=== PATIENT | female | born 1995 | race Caucasian/White ===

== ENCOUNTER 2021-08-27 20:37 | Inpatient (IN) | payer OTHER ==
[~2021-08-27] VITALS: Ht 160 cm; Wt 69.9 kg
[2021-08-27] MEDS ORDERED: NACL 0.9% 2,000 ML IV ONE (21:00)
--- NOTE | 2021-08-27 21:00 | NUR ---
ER at bedside examining patient.
[2021-08-27 21:05] VITALS: BP_SYST 156
--- NOTE | 2021-08-27 21:11 | NUR ---
PT BIB FRIENDS FOR VOMITING STARTING YESTERDAY. PT HAS A HX OF DM AND LAS T GLUCOSE STICK READ HIGH. PT HAS BEEN FEELING "WEIRD" SINCE YESTERDAY BUT SINCE 1999 PT HAS BEEN SOB AND VOMITING. PTS FAMILY STATED SHE HAS HAD A SYNCOPAL EPISODE TODAY. SHE HAS HAD NO INSULIN TODAY.A&OX4. FAMILY AT BEDSIDE
[2021-08-27 21:15] LABS: BASOPHILS # (AUTO) 0.2 K/uL (0.0-0.2); BASOPHILS % (AUTO) 0.5 % (0.0-2.0); EOSINOPHILS # (AUTO) 0.1 K/uL (0.0-0.4); EOSINOPHILS % (AUTO) 0.3 % (0.0-4.0); HEMATOCRIT 45.9 % (36-48); HEMOGLOBIN 13.9 g/dL (12.0-16.0); LYMPHOCYTES # (AUTO) 3.4 K/uL (1.0-5.5); LYMPHOCYTES % (AUTO) 11.6 % (20.5-51.5); MEAN CORPUSCULAR HEMOGLOBIN 27 pg (27-31); MEAN CORPUSCULAR HGB CONC 30 % (32-36); MEAN CORPUSCULAR VOLUME 90 fL (79.0-98.0); MONOCYTES # (AUTO) 0.8 K/uL (0.0-1.0); MONOCYTES % (AUTO) 2.5 % (1.7-9.3); NEUTROPHILS % (AUTO) 85.1 % (40.0-70.0); PLATELET COUNT (AUTO) 514 K/uL (130-430); RED BLOOD CELL COUNT(AUTO) 5.12 MIL/uL (4.2-6.2); RED CELL DISTRIBUTION WIDTH 14.3 % (9.0-15.0); WHITE BLOOD COUNT (AUTO) 29.4 K/uL (4.8-10.8)
[2021-08-27] MEDS ORDERED: DEXTROSE 50% JECT 50 ML DISP.SYRIN IVP PRN ×2 (21:15→23:45)
[2021-08-27] MEDS ORDERED: INSULIN REGULAR, HUMAN 100 UNITS in NS 99 ML IV PRN ×2 (21:15)
--- NOTE | 2021-08-27 21:34 | NUR ---
Note marissaone in EDM - 08/28/21 at 0427 by IFEANYI # 16 FR Andrew catheter with use of sterile technique. Immediate return of 50 cc YELLOW urine noted. Bedside drainage bag placed below level of bladder. Urine sample collected and sent to lab. Pt tolerated procedure WELL. Patient arrived with andrew in place, changed due to standard of practice prior to admission. Patient unable to toilet self.
[2021-08-27 22:10] LABS: ANION GAP 38 (5-15); CALCIUM 9.6 mg/dL (8.4-11.0); CHLORIDE 97 mmol/L (98-107); CREATININE 1.72 mg/dL (0.55-1.30); POTASSIUM 4.2 mmol/L (3.5-5.1); SODIUM SERUM 140 mmol/L (136-145); UREA NITROGEN, BLOOD 24 mg/dL (8-21)
[2021-08-27] MEDS ORDERED: LR 1,000 ML IV SCH (22:15)
[2021-08-27 22:17] LABS: ALANINE AMINOTRANSFERASE 23 U/L (12-78); ALBUMIN 3.6 g/dL (3.4-4.8); ASPARTATE AMINOTRANSFERASE 13 U/L (10-37); HCG,QUANTITATIVE 0 mIU/ML (0-6); TOTAL BILIRUBIN 0.5 mg/dL (0.0-1.0)
[2021-08-27 22:23] LABS: GFR AFRICAN AMERICAN 46 mL/min (>90); GLUCOSE 714 mg/dL (70-99)
[2021-08-27] MEDS ORDERED: INSULIN REGULAR, HUMAN 10 UNITS/0.1 ML INJ ONE (22:23)
--- NOTE | 2021-08-27 22:31 | NUR ---
# 20 gauge angiocath placed to LAC. Use of asceptic technique. Opsite placed over site. Blood return noted. Blood for lab drawn from site. Flushed with 10 cc of normal saline. No evidence of infiltration noted. Patient tolerated well.
[2021-08-27 22:55] LABS: BILIRUBIN,DIRECT 0.1 mg/dL (0.0-0.3)
[2021-08-27] MEDS ORDERED: KCL 10 mEq in 50 mL (PREMIX) 50 ML IV SCH (23:00)
[2021-08-27 23:03] LABS: ACETONE, SERUM MODERATE (NEGATIVE)
[2021-08-27] MEDS ORDERED: KCL 20 mEq in NS 1000 mL 1,000 ML IV ONE (23:15)
--- NOTE | 2021-08-27 23:19 | NUR ---
BG 579
--- NOTE | 2021-08-27 23:21 | NUR ---
LACTATED RINGERS AND POTASSIUM 10 MEW DISCONTINUED PER REQUEST OF DR HUMPHREYS
--- NOTE | 2021-08-27 23:30 | NUR ---
PT IS FULL CODE
--- NOTE | 2021-08-27 23:30 | NUR ---
BELONGINGS LIST COMPLETE
--- NOTE | 2021-08-27 23:33 | NUR ---
UNABLE TO ACQUIRE ACCURATE MED LIST.
[2021-08-27 23:51] LABS: BILIRUBIN,URINE NEGATIVE (NEGATIVE); BLOOD, URINE 1+ (NEGATIVE); CLARITY/URINE CLEAR (CLEAR); COLOR,URINE YELLOW (YELLOW); GLUCOSE,URINE 2+ (NEGATIVE); KETONES,URINE 3+ (NEGATIVE); LEUKOCYTE ESTERASE ,URINE NEGATIVE (NEGATIVE); NITRITE, URINE NEGATIVE (NEGATIVE); PH,URINE 5.5 (5.0-8.0); PROTEIN URINE 2+ (NEGATIVE); UROBILINOGEN,URINE 0.2 (0.2-1.0)
[2021-08-28] VITALS (10 sets, daily range): BP systolic 106–135
[2021-08-28] MEDS ORDERED: KCL 20 mEq in NS 1000 mL 1,000 ML IV ONE (00:10)
[2021-08-28 00:24] LABS: BACTERIA,URINE FEW /HPF (None Seen); WBC,URINE 0-3 /HPF (0-3)
--- NOTE | 2021-08-28 02:27 | NUR ---
pt is resting in bed with mother and at bedside
--- NOTE | 2021-08-28 03:22 | NUR ---
BG 271
--- NOTE | 2021-08-28 03:27 | NUR ---
PTS INSULIN DRIP TITRATED TO 3 UNITS/ HR
[2021-08-28] MEDS ORDERED: KCL 20 mEq in D5NS 1000 mL 1,000 ML IV SCH (03:45)
[2021-08-28] MEDS ORDERED: KCL 20 mEq in D5NS 1000 mL 1,000 ML IV ONE (04:09)
--- NOTE | 2021-08-28 04:12 | NUR ---
DR DAVIS INFORMED OF THE UPDATE ON THE PT AND THE NEW ORDERS GIVEN BY DR. HUMPHREYS
--- NOTE | 2021-08-28 04:26 | NUR ---
BG 273
--- NOTE | 2021-08-28 04:28 | NUR ---
PTS HEBERT DRAINED 1900 CC OF URINE OUT
--- NOTE | 2021-08-28 05:04 | NUR ---
LAB AT BEDSIDE
[2021-08-28 05:26] LABS: CREATININE 1.2 mg/dL (0.55-1.30); POTASSIUM 4.4 mmol/L (3.5-5.1)
[2021-08-28 05:30] LABS: PHOSPHORUS 2.9 mg/dL (2.7-4.5)
--- NOTE | 2021-08-28 06:10 | NUR ---
pt complaining of cramping and nausea. given zofran and morphine.
[2021-08-28] MEDS ORDERED: ONDANSETRON HCL 4 MG/2 ML VIAL IVP ONE ×2 (06:15→06:30)
[2021-08-28] MEDS ORDERED: MORPHINE 4 MG INJ. 4 MG/ML VIAL IVP ONE (06:15)
--- NOTE | 2021-08-28 06:30 | NUR ---
ER Dr. Weinstein at bedside examining patient.
[2021-08-28] MEDS ORDERED: NACL 0.9% 1,000 ML IV ONE (06:45)
--- NOTE | 2021-08-28 07:12 | NUR ---
care endorsed to lala mccloud
--- NOTE | 2021-08-28 07:19 | NUR ---
RECEIVED PT, PT WITH EYES CLOSED, IN NAD. RESP EVEN AND UNLABORED, ON RA @98%. AT BEDSIDE. PT EASILY AROUSABLE, AAOX3. DENIES ANY PAIN. IV FLUIDS AND IV INSULIN DRIP VIA PUMP GOING IN AT RATE OF 3UNITS/HR. ACCUCHECK 271MG/DL. PT CONTINUES TO BE ST ON MONITOR AT RATE OF 121 BMP, PT DENIES ANY SOB OR CP. SKIN W/D/I. F/C DRAINING CLEAR YELLOW URINE. DENIES ANY NAUSEA AT THSI TIME. PT ICU STATUS, GEOVANNA CONT TO MONITOR CLOSELY.
[2021-08-28] MEDS: INSULIN REGULAR, HUMAN 100 UNITS in NS 99 ML IV PRN ×4 (08:33→13:39)
[2021-08-28] MEDS: cefTRIAXone 1 GM IVPB PREMIX 50 ML IV SCH (09:21)
--- NOTE | 2021-08-28 09:24 | NUR ---
NO ACUTE CHANGES IN CONDITION, PT IN NAD. FAMILY AT BEDSIDE. VSS. IV FLUIDS INFUSING WELL. HEBERT CATH DRAINING WELL.
[2021-08-28] MEDS ORDERED: ACETAMINOPHEN 325 MG TABLET PO PRN (10:30)
[2021-08-28] MEDS ORDERED: NALOXONE HCL 0.4 MG/ML AMP (NARCAN) IVP PRN ×2 (10:30)
--- NOTE | 2021-08-28 11:36 | NUR ---
PT REQUESTNG SOME SUGAR FREE JELLO, TOLERATED WELL. VSS.
--- NOTE | 2021-08-28 13:26 | NUR ---
PT C/O NAUSEA/VOMITTING CLEAR/YELLOW FLUID. MEDICATED ORDERED WITH ZOFRAN. IV FLUIDS INFUSING WELL.
[2021-08-28] MEDS: ONDANSETRON HCL 4 MG/2 ML VIAL IVP PRN ×3 (13:46→22:35)
--- NOTE | 2021-08-28 14:13 | NUR ---
Patient will be admitted to care of [facility]. Admitted to unit. Will go to room . Belongings list completed. Complete and up to date summary report printed. SBAR report to be given at bedside with opportunity for questions.
--- NOTE | 2021-08-28 14:43 | NUR ---
CONSULT ID CONSULTING MD: DR. CEDEÑO PERSON NOTIFIED: DARRIUS DIALED: [phone] ORDERED BY: DR. DAVIS
[2021-08-28] MEDS: METOCLOPRAMIDE HCL 10 MG/2 ML VIAL IVP PRN ×2 (14:57→20:36)
[2021-08-28] MEDS: NACL 0.9% 1,000 ML IV SCH ×2 (14:59→20:37)
--- NOTE | 2021-08-28 15:33 | NUR ---
INFORMED TARIQ MENJIVAR THAT I AM UNABLE TO MONITOR THE PATIENT HE NEEDS BATTERIES IN THE TELE MONITOR HE WILL GIVE BATTERIES TO SHAI MCDUFFIE
--- NOTE | 2021-08-28 19:15 | NUR ---
CLOSING NOTE: REPORT GIVEN TO RN USING SBAR REPORTING. ALL SAFETY PRECAUTIONS ENFORCED. LAST BS WAS 188, INSULIN PUMP SET TO 0.5UNITS/HR PER PROTOCOL.
--- NOTE | 2021-08-28 20:21 | NUR ---
Patient awake alert sitting up in bed family is @ the bedside , patient alert is verbally Responsive no DIABETIC REACTIONS NOTED call pederson given to patient .
--- NOTE | 2021-08-28 20:44 | NUR ---
REGLAN 5 MG IVP ADMINISTER TO PATIENT FOR NAUSEA continue to monitor / .
[2021-08-28] MEDS: LORazepam 2 MG/ML VIAL IVP PRN (22:35)
--- NOTE | 2021-08-28 23:01 | NUR ---
LORAZEPAM 1 MG IVP administer for anxiety continue to monitor COMFORT MEASURES IMPLEMENTED / .
--- NOTE | 2021-08-28 23:43 | NUR ---
ZOFRAN 4 MG IVP ADMINISTER FOR GI UPSET & HELPFUL .
[2021-08-29] VITALS (23 sets, daily range): BP systolic 105–134
[2021-08-29] MEDS: NACL 0.9% 1,000 ML IV SCH ×2 (01:20→08:16)
--- NOTE | 2021-08-29 03:56 | NUR ---
Patient Resting HOB is elevated on 02 NC @ 2 LPM 02 SAT 98 % CHEST MOVEMENT SYMMETRICAL ALSO UNLABORED assist as needed continue to monitor .
[2021-08-29] MEDS: ONDANSETRON HCL 4 MG/2 ML VIAL IVP PRN ×3 (04:10→21:24)
[2021-08-29] MEDS: METOCLOPRAMIDE HCL 10 MG/2 ML VIAL IVP PRN ×3 (06:06→19:24)
[2021-08-29 06:31] LABS: BASOPHILS % (AUTO) 0.1 % (0.0-2.0); HEMATOCRIT 35.9 % (36-48); HEMOGLOBIN 11.4 g/dL (12.0-16.0); LYMPHOCYTES # (AUTO) 1.9 K/uL (1.0-5.5); LYMPHOCYTES % (AUTO) 10.6 % (20.5-51.5); MEAN CORPUSCULAR HEMOGLOBIN 26 pg (27-31); MEAN CORPUSCULAR HGB CONC 32 % (32-36); MEAN CORPUSCULAR VOLUME 83 fL (79.0-98.0); MONOCYTES # (AUTO) 0.9 K/uL (0.0-1.0); MONOCYTES % (AUTO) 5.3 % (1.7-9.3); NEUTROPHILS # (AUTO) 14.9 K/uL (1.8-7.7); PLATELET COUNT (AUTO) 333 K/uL (130-430); RED BLOOD CELL COUNT(AUTO) 4.34 MIL/uL (4.2-6.2); RED CELL DISTRIBUTION WIDTH 13.5 % (9.0-15.0); WHITE BLOOD COUNT (AUTO) 17.8 K/uL (4.8-10.8)
[2021-08-29] MEDS: cefTRIAXone 1 GM IVPB PREMIX 50 ML IV SCH (08:15)
[2021-08-29] MEDS ORDERED: ONDANSETRON HCL 4 MG/2 ML VIAL ONE (08:15)
[2021-08-29 08:22] LABS: ERYTHROCYTE SEDIMENTATION RATE 32 MM/HR (0-20)
[2021-08-29] MEDS: LORazepam 2 MG/ML VIAL IVP PRN ×3 (08:27→21:24)
[2021-08-29 08:30] LABS: ALBUMIN 2.5 g/dL (3.4-4.8); CALCIUM 8.3 mg/dL (8.4-11.0); CREATININE 0.94 mg/dL (0.55-1.30); PHOSPHORUS 1.3 mg/dL (2.7-4.5); TOTAL BILIRUBIN 0.2 mg/dL (0.0-1.0)
[2021-08-29] MEDS: HYDROcodone/ACETAMIN 10-325 MG TAB PO PRN (08:35)
[2021-08-29] MEDS ORDERED: PANTOPRAZOLE SODIUM 40 MG/VIAL (PROTONIX) IVP ONE (09:15)
[2021-08-29 09:55] LABS: POTASSIUM 2.7 mmol/L (3.5-5.1)
[2021-08-29 09:56] LABS: C-REACTIVE PROTEIN QUANT 1.4 mg/dL (0-0.5)
--- NOTE | 2021-08-29 10:08 | NUR ---
Nutrition Update : Joey Scale: 18 noted Pt admitted for Diabetic Ketoacidosis . Diet: [facility] [place] BMI: 27.5kg/m2 RD to follow per nutrition care standards.
[2021-08-29] MEDS ORDERED: K PHOS 30 MM in NS 250 ML IV ONE (10:30)
[2021-08-29] MEDS ORDERED: POTASSIUM CHLORIDE 40 MEQ in NS 250 ML IV ONE (10:30)
--- NOTE | 2021-08-29 10:36 | NUR ---
SPOKE WITH DR SOARES-SAYED: UPDATED ON PTS LABS, NEW ORDERS ACKNOWLEDGED AND CARRIED OUT.
[2021-08-29] MEDS ORDERED: K PHOS 15 MM in NS 250 ML IV ONE (11:15)
[2021-08-29] MEDS: POTASSIUM CHLORIDE 20 MEQ in 0.45% NACL 1,000 ML IV SCH ×2 (12:15→17:19)
--- NOTE | 2021-08-29 19:40 | NUR ---
PAGED SAYED FOR ORDERS SPOKE TO: DR. SOARES SAYED
[2021-08-29] MEDS ORDERED: INSULIN REGULAR, HUMAN 100 UNITS in NS 99 ML IV PRN ×2 (19:45)
--- NOTE | 2021-08-29 20:00 | NUR ---
DR FLOYD SPOKE TO DR FLOYD UPDATED ON PTS BS, NEW ORDERS ACKNOWLEDGED AND CARRIED OUT.
[2021-08-30] VITALS (25 sets, daily range): BP systolic 114–162
[2021-08-30] MEDS: POTASSIUM CHLORIDE 20 MEQ in 0.45% NACL 1,000 ML IV SCH ×2 (00:21→07:04)
[2021-08-30] MEDS: METOCLOPRAMIDE HCL 10 MG/2 ML VIAL IVP PRN ×3 (04:10→18:33)
[2021-08-30] MEDS: ONDANSETRON HCL 4 MG/2 ML VIAL IVP PRN ×4 (04:10→22:37)
[2021-08-30] MEDS: HYDROcodone/ACETAMIN 10-325 MG TAB PO PRN ×2 (04:10→08:59)
[2021-08-30 06:33] LABS: BASOPHILS % (AUTO) 0.1 % (0.0-2.0); EOSINOPHILS % (AUTO) 0.1 % (0.0-4.0); HEMATOCRIT 34.6 % (36-48); LYMPHOCYTES # (AUTO) 1.9 K/uL (1.0-5.5); MEAN CORPUSCULAR HEMOGLOBIN 27 pg (27-31); MEAN CORPUSCULAR HGB CONC 32 % (32-36); MEAN CORPUSCULAR VOLUME 84 fL (79.0-98.0); MONOCYTES # (AUTO) 0.9 K/uL (0.0-1.0); MONOCYTES % (AUTO) 5.8 % (1.7-9.3); NEUTROPHILS # (AUTO) 13.2 K/uL (1.8-7.7); PLATELET COUNT (AUTO) 266 K/uL (130-430); RED BLOOD CELL COUNT(AUTO) 4.13 MIL/uL (4.2-6.2)
[2021-08-30 07:11] LABS: CREATININE 0.95 mg/dL (0.55-1.30); PHOSPHORUS 1.9 mg/dL (2.7-4.5); POTASSIUM 3.1 mmol/L (3.5-5.1)
--- NOTE | 2021-08-30 08:00 | NUR ---
AM ASSESSMENT. PT DROWSY, HER FIANCE AT BEDSIDE, PT ON INSULIN DRIP AT 1 UNIT/HR, BLOOD SUGAR TEST DONE 238 MG/DL, HER TEMP AFEBRILE, SINUS TACHYCARDIA ON INFORMATION DEVELOPER, PT DENIES BODY DISCOMFORTS AT THIS HOUR.
[2021-08-30] MEDS: PANTOPRAZOLE SODIUM 40 MG/VIAL (PROTONIX) IVP SCH (08:48)
[2021-08-30] MEDS: cefTRIAXone 1 GM IVPB PREMIX 50 ML IV SCH (08:48)
--- NOTE | 2021-08-30 09:02 | NUR ---
G.I. PT COMPLAINED OF NECK/ CHEST DISCOMFORT, AND NAUSEA, 1 TABLET NORCO GIVEN, MEDICATED WITH ZOFRAN 4 MG IVP.
[2021-08-30 09:14] LABS: C-REACTIVE PROTEIN QUANT 2.4 mg/dL (0-0.5)
--- NOTE | 2021-08-30 09:20 | NUR ---
Jesica. PT THREW UP THE PAIN PILL. WET AND DRY TOWELS PROVIDED FOR HYGIENE.
--- NOTE | 2021-08-30 09:28 | NUR ---
HIGH ALERT NOTE: Called [RYAN] back at [[id number]] identified within the medical roster to verify physician authenticity.
[2021-08-30] MEDS ORDERED: MORPHINE 2 MG/ML INJ. SYRINGE IVP PRN (09:30)
[2021-08-30] MEDS ORDERED: NALOXONE HCL 0.4 MG/ML AMP (NARCAN) IVP PRN ×2 (09:30)
[2021-08-30] MEDS ORDERED: K PHOS 20 MM in NS 250 ML IV ONE (10:15)
[2021-08-30] MEDS ORDERED: POTASSIUM CHLORIDE 40 MEQ in NS 250 ML IV ONE (10:15)
[2021-08-30 10:22] LABS: ERYTHROCYTE SEDIMENTATION RATE 36 MM/HR (0-20)
[2021-08-30] MEDS ORDERED: INSULIN REGULAR, HUMAN 100 UNITS in NS 99 ML IV PRN ×4 (10:30→21:00)
[2021-08-30] MEDS: KCL 20 mEq in D5W 1000 mL 1,000 ML IV SCH ×2 (12:05→21:05)
--- NOTE | 2021-08-30 14:39 | NUR ---
Dietitian Recommendations * CCHO, soft (low fiber/bland) diet w/ Ensure Clear TID (ONS provides 720 kcal/day, 24 gm protein/day) * Encourage increase PO intakes * Nutrition Consult for DM dietary management MNT prior to D/C VJ SANDOVAL Please refer to Nutrition Assessment for details. Addendum: 08/30/21 at [address] Amended: Links added.
[2021-08-30] MEDS: MORPHINE 2 MG/ML INJ. SYRINGE IVP PRN (15:36)
--- NOTE | 2021-08-30 15:36 | NUR ---
PAIN. MEDICATED PT WITH MORPHINE 2 MG IVP FOR CHEST DISCOMFORTS AFTER VOMITING.
--- NOTE | 2021-08-30 16:00 | NUR ---
MD DR ANDRADE CAME IN TO EXAMINE PT. IV SITE IN LEFT A/C INFILTRATED AND D/CD. NEW ORDERS RECEIVED, PICC LINE TODAY.
[2021-08-30 19:54] LABS: INR 0.9 (0.8-1.2); PROTHROMBIN TIME 10.1 SECS (9.5-12.5)
[2021-08-30 20:11] LABS: CALCIUM 8.3 mg/dL (8.4-11.0); CREATININE 0.93 mg/dL (0.55-1.30); POTASSIUM 4.2 mmol/L (3.5-5.1)
--- NOTE | 2021-08-30 21:00 | NUR ---
CALLED DR CAI, BMP RESULTS RELAYED TO HIM,INSULIN GTT TO 3 UNITS/HR AND D50W TO 50ML/HR.FOR BMP LABS IN AM AND PHOS.
[2021-08-30] MEDS: LORazepam 2 MG/ML VIAL IVP PRN (22:36)
[2021-08-31] VITALS (24 sets, daily range): BP systolic 112–166
[2021-08-31] MEDS: ONDANSETRON HCL 4 MG/2 ML VIAL IVP PRN (04:34)
[2021-08-31] MEDS: METOCLOPRAMIDE HCL 10 MG/2 ML VIAL IVP PRN ×2 (05:47→13:03)
--- NOTE | 2021-08-31 07:23 | NUR ---
CALLED DR SOARES SAYED BS-[id number] INCREASE INSULIN DRIP 5 UNITS/HR AND NEW ANTI EMETIC ORDERED SEE CPOE. PLS CALL FOR AM LAB RESULTS TO FOLLOW.
[2021-08-31] MEDS ORDERED: INSULIN REGULAR, HUMAN 100 UNITS in NS 99 ML IV PRN ×6 (08:00→17:30)
[2021-08-31 08:20] LABS: CALCIUM 8.9 mg/dL (8.4-11.0); CREATININE 0.85 mg/dL (0.55-1.30); PHOSPHORUS 1.7 mg/dL (2.7-4.5); POTASSIUM 3.6 mmol/L (3.5-5.1)
[2021-08-31] MEDS: PANTOPRAZOLE SODIUM 40 MG/VIAL (PROTONIX) IVP SCH (09:00)
[2021-08-31] MEDS: cefTRIAXone 1 GM IVPB PREMIX 50 ML IV SCH (09:00)
[2021-08-31] MEDS ORDERED: NACL 0.9% 1,000 ML IV SCH ×2 (09:30→10:30)
[2021-08-31] MEDS: PROCHLORPERAZINE EDISYLATE 10 MG/2 ML VIAL IVP PRN ×3 (09:39→20:47)
--- NOTE | 2021-08-31 11:00 | NUR ---
NOTIFIED DR SOARES SAYED REGARDING BLOOD SUGAR 206, NEW ORDERS TAKEN, ADJUSTMENT MADE TO INSULIN GTT
[2021-08-31] MEDS ORDERED: NA PHOS 15 MM in NS 250 ML IV ONE (14:00)
--- NOTE | 2021-08-31 17:00 | NUR ---
CALLED DR HERNANDEZ REGARDING BLOOD SUGAR 149, AWAITING CALL BACK
[2021-08-31] MEDS: KCL 20 mEq in D5W 1000 mL 1,000 ML IV SCH (17:08)
[2021-08-31] MEDS: D5/0.45 NS 1,000 ML IV SCH (17:27)
[2021-09-01] VITALS (23 sets, daily range): BP systolic 122–177
[2021-09-01] MEDS: METOCLOPRAMIDE HCL 10 MG/2 ML VIAL IVP PRN ×4 (00:23→23:41)
[2021-09-01] MEDS: ONDANSETRON HCL 4 MG/2 ML VIAL IVP PRN ×2 (03:43→12:11)
[2021-09-01] MEDS: HYDROcodone/ACETAMIN 5-325 MG TAB (NORCO/ VICODIN) PO PRN (03:43)
[2021-09-01] MEDS: cefTRIAXone 1 GM IVPB PREMIX 50 ML IV SCH (08:27)
[2021-09-01] MEDS: PANTOPRAZOLE SODIUM 40 MG/VIAL (PROTONIX) IVP SCH (08:28)
[2021-09-01 09:14] LABS: BASOPHILS % (AUTO) 0.2 % (0.0-2.0); EOSINOPHILS # (AUTO) 0.1 K/uL (0.0-0.4); EOSINOPHILS % (AUTO) 0.7 % (0.0-4.0); HEMATOCRIT 36.3 % (36-48); LYMPHOCYTES # (AUTO) 2.2 K/uL (1.0-5.5); LYMPHOCYTES % (AUTO) 21.8 % (20.5-51.5); MEAN CORPUSCULAR HEMOGLOBIN 27 pg (27-31); MEAN CORPUSCULAR HGB CONC 33 % (32-36); MEAN CORPUSCULAR VOLUME 80 fL (79.0-98.0); MONOCYTES # (AUTO) 0.7 K/uL (0.0-1.0); NEUTROPHILS # (AUTO) 7.1 K/uL (1.8-7.7); NEUTROPHILS % (AUTO) 70.3 % (40.0-70.0); PLATELET COUNT (AUTO) 264 K/uL (130-430); RED BLOOD CELL COUNT(AUTO) 4.52 MIL/uL (4.2-6.2); RED CELL DISTRIBUTION WIDTH 13.2 % (9.0-15.0)
[2021-09-01 10:32] LABS: C-REACTIVE PROTEIN QUANT 1.1 mg/dL (0-0.5); CALCIUM 7.6 mg/dL (8.4-11.0); CREATININE 0.78 mg/dL (0.55-1.30); PHOSPHORUS 1.7 mg/dL (2.7-4.5)
[2021-09-01 10:34] LABS: POTASSIUM 2.7 mmol/L (3.5-5.1)
[2021-09-01] MEDS ORDERED: K PHOS 40 MM in NS 250 ML IV ONE (11:00)
[2021-09-01] MEDS: PROCHLORPERAZINE EDISYLATE 10 MG/2 ML VIAL IVP PRN ×2 (11:06→15:53)
[2021-09-01 11:26] LABS: ERYTHROCYTE SEDIMENTATION RATE 48 MM/HR (0-20)
[2021-09-01] MEDS: D5/0.45 NS 1,000 ML IV SCH (13:14)
[2021-09-01] MEDS ORDERED: LOSARTAN POTASSIUM 50 MG TABLET (COZAAR) PO ONE (13:26)
[2021-09-01] MEDS ORDERED: amLODIPine BESYLATE 5 MG TABLET PO ONE (13:26)
[2021-09-01] MEDS ORDERED: NS 500 ML IV ONE (13:30)
[2021-09-01] MEDS ORDERED: POTASSIUM CHLORIDE 40 MEQ in NS 250 ML IV ONE (13:30)
[2021-09-01] MEDS ORDERED: METOPROLOL SUCCINATE 25 MG TAB.SR.24H (TOPROL XL) PO ONE (13:45)
[2021-09-01] MEDS: LORazepam 2 MG/ML VIAL IVP PRN (14:40)
[2021-09-01 18:37] LABS: CALCIUM 8.2 mg/dL (8.4-11.0); CREATININE 0.7 mg/dL (0.55-1.30); POTASSIUM 3.3 mmol/L (3.5-5.1)
[2021-09-01] MEDS: HYDROcodone/ACETAMIN 10-325 MG TAB PO PRN (23:49)
[2021-09-02] VITALS (24 sets, daily range): BP systolic 97–176
[2021-09-02] MEDS ORDERED: PROCHLORPERAZINE EDISYLATE 10 MG/2 ML VIAL ONE (05:13)
[2021-09-02] MEDS: PROCHLORPERAZINE EDISYLATE 10 MG/2 ML VIAL IVP PRN ×2 (05:46→13:18)
[2021-09-02] MEDS ORDERED: PROMETHAZINE INJ.Non-Formulary 25 MG/ML AMP IVP PRN (06:15)
[2021-09-02 06:52] LABS: BASOPHILS % (AUTO) 0.5 % (0.0-2.0); EOSINOPHILS # (AUTO) 0.3 K/uL (0.0-0.4); EOSINOPHILS % (AUTO) 3.2 % (0.0-4.0); HEMATOCRIT 36.8 % (36-48); HEMOGLOBIN 12.2 g/dL (12.0-16.0); LYMPHOCYTES # (AUTO) 2.1 K/uL (1.0-5.5); LYMPHOCYTES % (AUTO) 22.8 % (20.5-51.5); MEAN CORPUSCULAR HEMOGLOBIN 27 pg (27-31); MEAN CORPUSCULAR HGB CONC 33 % (32-36); MEAN CORPUSCULAR VOLUME 81 fL (79.0-98.0); MONOCYTES # (AUTO) 0.9 K/uL (0.0-1.0); MONOCYTES % (AUTO) 10.3 % (1.7-9.3); NEUTROPHILS # (AUTO) 5.7 K/uL (1.8-7.7); NEUTROPHILS % (AUTO) 63.2 % (40.0-70.0); PLATELET COUNT (AUTO) 285 K/uL (130-430); RED BLOOD CELL COUNT(AUTO) 4.55 MIL/uL (4.2-6.2); RED CELL DISTRIBUTION WIDTH 13.4 % (9.0-15.0)
--- NOTE | 2021-09-02 07:40 | NUR ---
CALLED DR SOARES SAYED REGARDING BLOOD SUGAR 104, NEW ORDERS TO DECREASE INSULIN GTT TO 3 UNITS/HR AND CALL BACK WITH LAB RESULTS WHEN AVAILABLE. INSULIN GTT ADJUSTED PER ORDER, AWAITING RESULTS TO BECOME AVAILABLE
[2021-09-02] MEDS: ONDANSETRON HCL 4 MG/2 ML VIAL IVP PRN ×2 (07:44→15:16)
[2021-09-02] MEDS ORDERED: METOPROLOL SUCCINATE 25 MG TAB.SR.24H (TOPROL XL) PO SCH (09:00)
--- NOTE | 2021-09-02 09:05 | NUR ---
PT WITH LG EMESIS APPROX 200ML AFTER EATING BREAKFAST.
[2021-09-02] MEDS: cefTRIAXone 1 GM IVPB PREMIX 50 ML IV SCH (09:15)
[2021-09-02] MEDS: LOSARTAN POTASSIUM 50 MG TABLET (COZAAR) PO SCH (09:17)
[2021-09-02] MEDS: PANTOPRAZOLE SODIUM 40 MG/VIAL (PROTONIX) IVP SCH (09:17)
[2021-09-02] MEDS: amLODIPine BESYLATE 5 MG TABLET PO SCH (09:18)
[2021-09-02] MEDS: METOCLOPRAMIDE HCL 10 MG/2 ML VIAL IVP PRN ×2 (09:19→18:00)
[2021-09-02 09:27] LABS: C-REACTIVE PROTEIN QUANT 1.3 mg/dL (0-0.5); CALCIUM 7.2 mg/dL (8.4-11.0); CREATININE 0.65 mg/dL (0.55-1.30); PHOSPHORUS 2.8 mg/dL (2.7-4.5)
[2021-09-02 09:29] LABS: POTASSIUM 2.4 mmol/L (3.5-5.1)
[2021-09-02 09:58] LABS: ERYTHROCYTE SEDIMENTATION RATE 33 MM/HR (0-20)
[2021-09-02] MEDS: MORPHINE 2 MG/ML INJ. SYRINGE IVP PRN (10:06)
[2021-09-02] MEDS: D5/0.45 NS 1,000 ML IV SCH (10:07)
--- NOTE | 2021-09-02 10:12 | NUR ---
Page out to Dr. Anton, waiting for call back.
--- NOTE | 2021-09-02 10:32 | NUR ---
CONSULTATION PAGED/CALLED Reason for Consultation: abdominal pain, intractable vomiting Person Who was Notified: exchange Consulting Physician: Dr. Delatorre Dental Mold Maker Specialty: GI Ordering Physician: Dr. Anton
[2021-09-02 10:44] LABS: AMYLASE 21 U/L (0-100); LIPASE 23 U/L (73-393)
[2021-09-02] MEDS ORDERED: KCL 40 mEq in 100 mL (PREMIX) 100 ML IV ONE ×2 (11:00→15:00)
[2021-09-02] MEDS ORDERED: GLUCOSE (DEXTROSE) ORAL GEL -Adults PO PRN (11:15)
[2021-09-02] MEDS ORDERED: DEXTROSE 50%-WATER 50 ML DISP.SYRIN IVP PRN (11:15)
[2021-09-02] MEDS ORDERED: D5W 1,000 ML IV PRN (11:15)
[2021-09-02] MEDS ORDERED: INSULIN NPH 100 UNITS/ML 10 ML VIAL SUBCUT ONE (11:15)
[2021-09-02] MEDS ORDERED: METOPROLOL SUCCINATE 25 MG TAB.SR.24H (TOPROL XL) PO ONE (11:30)
--- NOTE | 2021-09-02 12:27 | NUR ---
INSULIN GTT STOPPED PER ORDER BY DR. SOARES SAYED
[2021-09-02] MEDS: HYDROcodone/ACETAMIN 10-325 MG TAB PO PRN (13:28)
[2021-09-02] MEDS: LORazepam 2 MG/ML VIAL IVP PRN (15:23)
--- NOTE | 2021-09-02 17:14 | NUR ---
Page out to Dr. Delatorre, spoke with exchange.
[2021-09-02] MEDS: INSULIN LISPRO SLIDING SCALE 100 UNITS/ML VIAL (humaLOG) SUBCUT PRN ×2 (17:19→21:28)
--- NOTE | 2021-09-02 17:32 | NUR ---
Nutrition F/U RD reviewed pt's current EMR record including diet Hx, physician notes, nursing notes, pertinent labs/meds/procedures, care trends, and care activity. Admission Dx: DKA PMH: type DM and UTI per physician notes SARS-CoV-2 Ag (Rapid) Negative 08/27 09/02 EMR review: gastroparesis Current Diet Order/Nutrition Support: Subjective Info: RD rounded to pt's bedside. Pt was sitting up but feeling unwell/nauseated/weak. Pt's father present at bedside. pt continues to have difficulty tolerating foods/drinks. RN reported that pt cannot keep anything down and has been vomiting after anything she eats despite being provided all the appropriate meds. RN reported that insulin drip was D/C today, and plans for GI consult. Pt reported that she had a solid BM today without any difficulty. Per EMR review, no current PO intake records noted, however, RN stated pt is not eating anything. Pt reported that prior to coming into the hospital, she was eating fine. Pt has had poor PO intakes for the past 1 week. Pt may be a good candidate for alternative nutrition support while PO intakes are suboptimal. Pertinent Medications:: KCl IV, D5%-1/2NS at 50 ml/hr (204 kcal/day), morphine, protonix IV, reglan, zofran Pertinent Labs: Na 139 WNL, BG 238 H, POC BG 182 H, CRP 1.3 H, WBC 9 WNL, K 2.4 L Height (Feet) 5 feet Height (Inches) 3.00 inches Weight (Pounds) 154 pounds -- stable since 08/30 Weight (Calculated Kilograms) 69.827813 kilograms Patient Weight 69.853 kg Body Mass Index 27.28 kg/m2 %IBW 134 Elmer/Adjusted Body Weight IBW: 115#/52 kg. Adj IBW (obesity): 125#/57 kg Recent Weight Change No Weight Status Overweight Estimated Energy Expenditure (kcals/day) 7334-2299 kcal/day (25-30 kcal/kg Adj IBW d/t obesity, maintenance) Estimated Protein Required (g/day) 46-57 gm/day (0.8-1 gm/kg Adj IBW d/t obesity, maintenance) Estimated Fluid Required (l/day) 2.1-2.5 L/day (30-35 ml/kg CBW d/t maintenance) Problem/Etiology/Signs/Symptoms Suboptimal nutritional intakes related to lack of appetite as evidenced by N/V and negligible PO intake records. *ongoing Altered nutrition-related labs related to endocrine dysfunction as evidenced by elevated BG and POC BG lab values. *new Complicated GI function related to pathophysiological causes as evidenced by N/V and need for GI consult. *new Expected Outcomes/Goals - Monitor appetite and PO intakes w/ goal of pt meeting at least 75% of estimated nutritional needs, labs trending WNL, normal GI function, and skin integrity/wt maintenance Dietitian Recommendations * Continue CCHO, soft (low fiber/bland) diet w/ Ensure Clear TID (ONS provides 720 kcal/day, 24 gm protein/day) * Encourage increase PO intakes * Nutrition Consult for DM dietary management MNT prior to D/C Follow Up High Risk: F/U in 2-3 days Addendum: 09/02/21 at [address] CORRECTION: Dietitian Recommendations * Continue CCHO, soft (low fiber/bland) diet w/ Ensure Clear TID (ONS provides 720 kcal/day, 24 gm protein/day) * Encourage increase PO intakes * Consider alternative nutrition support (TPN/PPN) * Nutrition Consult for DM dietary management MNT prior to D/C
--- NOTE | 2021-09-02 17:40 | NUR ---
Dietitian Recommendations * Continue CCHO, soft (low fiber/bland) diet w/ Ensure Clear TID (ONS provides 720 kcal/day, 24 gm protein/day) * Encourage increase PO intakes * Consider alternative nutrition support (TPN/PPN) * Nutrition Consult for DM dietary management MNT prior to D/C LP, RD Please refer to Nutrition F/U for details.
[2021-09-02] MEDS: INSULIN NPH 100 UNITS/ML 10 ML VIAL SUBCUT SCH (21:26)
[2021-09-03] VITALS (8 sets, daily range): BP systolic 90–146
[2021-09-03] MEDS: D5/0.45 NS 1,000 ML IV SCH (05:08)
[2021-09-03] MEDS: MORPHINE 2 MG/ML INJ. SYRINGE IVP PRN (05:10)
[2021-09-03] MEDS: PROCHLORPERAZINE EDISYLATE 10 MG/2 ML VIAL IVP PRN (05:10)
[2021-09-03] MEDS: SUCRALFATE 1 GM TABLET PO SCH (06:18)
[2021-09-03] MEDS: INSULIN LISPRO SLIDING SCALE 100 UNITS/ML VIAL (humaLOG) SUBCUT PRN (06:20)
[2021-09-03 07:07] LABS: BASOPHILS % (AUTO) 0.4 % (0.0-2.0); EOSINOPHILS # (AUTO) 0.4 K/uL (0.0-0.4); EOSINOPHILS % (AUTO) 3.9 % (0.0-4.0); HEMATOCRIT 42.2 % (36-48); HEMOGLOBIN 13.4 g/dL (12.0-16.0); LYMPHOCYTES # (AUTO) 2.6 K/uL (1.0-5.5); LYMPHOCYTES % (AUTO) 24.2 % (20.5-51.5); MEAN CORPUSCULAR HEMOGLOBIN 26 pg (27-31); MEAN CORPUSCULAR HGB CONC 32 % (32-36); MEAN CORPUSCULAR VOLUME 83 fL (79.0-98.0); MONOCYTES % (AUTO) 9.5 % (1.7-9.3); NEUTROPHILS # (AUTO) 6.8 K/uL (1.8-7.7); PLATELET COUNT (AUTO) 349 K/uL (130-430); RED BLOOD CELL COUNT(AUTO) 5.09 MIL/uL (4.2-6.2); RED CELL DISTRIBUTION WIDTH 13.6 % (9.0-15.0); WHITE BLOOD COUNT (AUTO) 10.9 K/uL (4.8-10.8)
--- NOTE | 2021-09-03 07:30 | NUR ---
Bedside RN lost computer access and IT is aware. See downtime charting paperwork placed in the chart, including the EMAR. I am not the bedside RN.
[2021-09-03] MEDS: METOCLOPRAMIDE HCL 10 MG/2 ML VIAL IVP PRN (07:44)
[2021-09-03] MEDS: LORazepam 2 MG/ML VIAL IVP PRN (07:45)
[2021-09-03 07:52] LABS: ALBUMIN 2.5 g/dL (3.4-4.8); C-REACTIVE PROTEIN QUANT 0.5 mg/dL (0-0.5); CALCIUM 7.9 mg/dL (8.4-11.0); CREATININE 0.66 mg/dL (0.55-1.30); PHOSPHORUS 2.9 mg/dL (2.7-4.5); TOTAL BILIRUBIN 0.4 mg/dL (0.0-1.0)
[2021-09-03 08:07] LABS: POTASSIUM 2.9 mmol/L (3.5-5.1)
[2021-09-03] MEDS ORDERED: METOCLOPRAMIDE HCL 10 MG/2 ML VIAL ONE (08:48)
[2021-09-03 09:00] LABS: ERYTHROCYTE SEDIMENTATION RATE 28 MM/HR (0-20)
[2021-09-03] MEDS ORDERED: METOPROLOL SUCCINATE 50 MG TAB.SR.24H (TOPROL XL) PO SCH (09:00)
[2021-09-03] MEDS ORDERED: KCL 40 mEq in 100 mL (PREMIX) 100 ML IV ONE ×2 (09:45→14:15)
[2021-09-03] MEDS ORDERED: HALOPERIDOL LACTATE 5 MG/ML VIAL IVP ONE (09:45)
[2021-09-03] MEDS ORDERED: ONDANSETRON HCL 4 MG/2 ML VIAL ONE (18:00)
--- NOTE | 2021-09-03 18:00 | NUR ---
See downtime paper charting placed in the medical record.
[2021-09-03] MEDS: PANTOPRAZOLE SODIUM 40 MG/VIAL (PROTONIX) IVP SCH (22:35)
[2021-09-03] MEDS: INSULIN NPH 100 UNITS/ML 10 ML VIAL SUBCUT SCH (22:38)
[2021-09-04] MEDS: D5/0.45 NS 1,000 ML IV SCH ×2 (05:36→20:42)
[2021-09-04] MEDS: METOCLOPRAMIDE HCL 10 MG/2 ML VIAL IVP SCH ×4 (05:37→17:11)
--- NOTE | 2021-09-04 06:00 | NUR ---
Received pt from ICU at change of shift, no acute distress noted, family at bedside, FC patent, IV patent and infusing well. Pt remained stable throughout the night, no c/o pain no vomiting, pt not able to tolerate anything PO, should possibly consider alternate nutrition, mother remains at bedside requesting note for work for herself. Pt is comfortable at this time. Care endorsed to oncoming nurse.
[2021-09-04 06:59] LABS: BASOPHILS % (AUTO) 0.5 % (0.0-2.0); EOSINOPHILS # (AUTO) 0.4 K/uL (0.0-0.4); EOSINOPHILS % (AUTO) 5.1 % (0.0-4.0); HEMATOCRIT 40.2 % (36-48); LYMPHOCYTES # (AUTO) 3.4 K/uL (1.0-5.5); LYMPHOCYTES % (AUTO) 39.4 % (20.5-51.5); MEAN CORPUSCULAR HEMOGLOBIN 27 pg (27-31); MEAN CORPUSCULAR HGB CONC 32 % (32-36); MEAN CORPUSCULAR VOLUME 82 fL (79.0-98.0); MONOCYTES # (AUTO) 0.8 K/uL (0.0-1.0); MONOCYTES % (AUTO) 8.7 % (1.7-9.3); NEUTROPHILS # (AUTO) 4.1 K/uL (1.8-7.7); NEUTROPHILS % (AUTO) 46.3 % (40.0-70.0); PLATELET COUNT (AUTO) 420 K/uL (130-430); RED BLOOD CELL COUNT(AUTO) 4.89 MIL/uL (4.2-6.2); RED CELL DISTRIBUTION WIDTH 13.7 % (9.0-15.0); WHITE BLOOD COUNT (AUTO) 8.7 K/uL (4.8-10.8)
[2021-09-04 08:27] LABS: ANION GAP 10 (5-15); C-REACTIVE PROTEIN QUANT < 0.2 mg/dL (0-0.5); CALCIUM 7.9 mg/dL (8.4-11.0); CHLORIDE 103 mmol/L (98-107); CREATININE 0.67 mg/dL (0.55-1.30); GLUCOSE 188 mg/dL (70-99); POTASSIUM 3.2 mmol/L (3.5-5.1); SODIUM SERUM 139 mmol/L (136-145); UREA NITROGEN, BLOOD 7 mg/dL (8-21)
[2021-09-04 08:32] LABS: GFR AFRICAN AMERICAN 136 mL/min (>90)
--- NOTE | 2021-09-04 08:45 | NUR ---
Opening note patient resting in bed, a/ox4, denies pain, +nausea but patient is not requesting medication at this time, Steve Catheter in place, draining to gravity, educated the patient on plan of care and call light system, she verbalized understanding, bed in lowest position, two side rails up, call light within reach, fall and aspiration precautions in place.
[2021-09-04 08:58] VITALS: BP_SYST 133
[2021-09-04] MEDS: LOSARTAN POTASSIUM 50 MG TABLET (COZAAR) PO SCH (09:41)
[2021-09-04] MEDS: amLODIPine BESYLATE 5 MG TABLET PO SCH (09:42)
[2021-09-04] MEDS: PANTOPRAZOLE SODIUM 40 MG/VIAL (PROTONIX) IVP SCH ×2 (09:42→20:52)
[2021-09-04] MEDS: INSULIN LISPRO SLIDING SCALE 100 UNITS/ML VIAL (humaLOG) SUBCUT PRN ×3 (09:48→22:42)
[2021-09-04] MEDS: INSULIN NPH 100 UNITS/ML 10 ML VIAL SUBCUT SCH ×2 (09:50→21:00)
[2021-09-04] MEDS: SUCRALFATE 1 GM TABLET PO SCH ×2 (10:00→17:11)
--- NOTE | 2021-09-04 10:45 | NUR ---
Transfer of care SBAR report to Gabriel GIBBONS for continuity of care.
[2021-09-04 10:58] LABS: ERYTHROCYTE SEDIMENTATION RATE 21 MM/HR (0-20)
[2021-09-04 11:36] VITALS: BP_SYST 132
--- NOTE | 2021-09-04 11:50 | NUR ---
BS AT 193. 2 UNITS OF RI IS GIVEN.
--- NOTE | 2021-09-04 15:00 | NUR ---
PATIENT IS RESTING, BUT STILL C/O N/V AT TIMES. WILL REPORT TO STAMP REDEMPTION CLERK.
[2021-09-04 15:41] VITALS: BP_SYST 94
[2021-09-04] MEDS ORDERED: POTASSIUM CHLORIDE 40 MEQ in NS 250 ML IV ONE (17:00)
--- NOTE | 2021-09-04 17:30 | NUR ---
BS AT 120. NO COVERAGE NEEDED.
[2021-09-04 19:31] LABS: OPIATE, URINE POSITIVE (NEG <=100)
[2021-09-04 19:32] LABS: BARBITURATE, URINE NEGATIVE (NEG <=200); BENZODIAZEPINE, URINE POSITIVE (NEG <=150); CANNABINOID, URINE NEGATIVE (NEG <=50); COCAINE, URINE NEGATIVE (NEG <=150); METHAMPHETAMINES SCREEN,URINE NEGATIVE (NEG <=500); PHENCYCLIDINE SCREEN,URINE NEGATIVE (NEG <=25); UR TRICYCLIC ANTIDEPRESSANTS NEGATIVE (NEG <=300); URINE AMPHETAMINE NEGATIVE (NEG <=500); URINE METHADONE NEGATIVE (NEG <=200); URINE OXYCODONE SCREEN NEGATIVE (NEG <=100); URINE PROPOXYPHENE SCREEN NEGATIVE (NEG <=300)
[2021-09-04 20:00] VITALS: BP_SYST 110
[2021-09-04] MEDS: HYDROcodone/ACETAMIN 10-325 MG TAB PO PRN (20:53)
[2021-09-05] MEDS: METOCLOPRAMIDE HCL 10 MG/2 ML VIAL IVP SCH ×5 (00:38→23:30)
[2021-09-05 01:12] VITALS: BP_SYST 117
[2021-09-05] MEDS: HYDROcodone/ACETAMIN 10-325 MG TAB PO PRN (02:31)
--- NOTE | 2021-09-05 05:56 | NUR ---
Consultation Paged Reason for Consultation: Gallstones Was consult called: Y Person who was notified: Hernan Consulting Physician: Anaid Yeung Ordering Physician: Michel Muhammad
--- NOTE | 2021-09-05 06:38 | NUR ---
PT SLEPT WELL AFTER CONTROLLING HER PAIN AND HER NAUSEA , SHE DIDNT HAVE ANY NAUSEA OR VOMITTING , BLOOD SUGAR NORMAL NO COVERAGE ,VSS
[2021-09-05 06:40] VITALS: BP_SYST 120
[2021-09-05 06:57] LABS: BASOPHILS % (AUTO) 0.5 % (0.0-2.0); EOSINOPHILS # (AUTO) 0.4 K/uL (0.0-0.4); EOSINOPHILS % (AUTO) 4.1 % (0.0-4.0); HEMATOCRIT 35.7 % (36-48); HEMOGLOBIN 11.7 g/dL (12.0-16.0); LYMPHOCYTES # (AUTO) 4.9 K/uL (1.0-5.5); MEAN CORPUSCULAR HEMOGLOBIN 27 pg (27-31); MEAN CORPUSCULAR HGB CONC 33 % (32-36); MEAN CORPUSCULAR VOLUME 81 fL (79.0-98.0); MONOCYTES # (AUTO) 1.1 K/uL (0.0-1.0); NEUTROPHILS # (AUTO) 3.2 K/uL (1.8-7.7); NEUTROPHILS % (AUTO) 33.4 % (40.0-70.0); PLATELET COUNT (AUTO) 356 K/uL (130-430); RED CELL DISTRIBUTION WIDTH 13.7 % (9.0-15.0); WHITE BLOOD COUNT (AUTO) 9.6 K/uL (4.8-10.8)
[2021-09-05] MEDS: SUCRALFATE 1 GM TABLET PO SCH ×2 (07:00→17:46)
[2021-09-05 07:50] LABS: ALBUMIN 2.4 g/dL (3.4-4.8); CALCIUM 8.1 mg/dL (8.4-11.0); CREATININE 0.51 mg/dL (0.55-1.30); TOTAL BILIRUBIN 0.3 mg/dL (0.0-1.0)
[2021-09-05 08:50] LABS: POTASSIUM 2.7 mmol/L (3.5-5.1)
--- NOTE | 2021-09-05 09:16 | NUR ---
ATTENDING MD DR DAVIS WAS PAGED, RE: CRITICAL K LEVEL OF 2.7.
[2021-09-05] MEDS ORDERED: LIDOCAINE JECT IV ONE (09:30)
[2021-09-05] MEDS ORDERED: NS IV ONE (09:30)
[2021-09-05] MEDS ORDERED: KCL IV ONE (09:30)
[2021-09-05] MEDS ORDERED: POTASSIUM CHLORIDE 40 MEQ, LIDOCAINE JECT 2% PF 100 MG 75 MG in NS 250 ML IV ONE (09:45)
[2021-09-05] MEDS: INSULIN NPH 100 UNITS/ML 10 ML VIAL SUBCUT SCH ×2 (10:20→21:36)
[2021-09-05] MEDS: PANTOPRAZOLE SODIUM 40 MG/VIAL (PROTONIX) IVP SCH ×2 (10:25→21:31)
[2021-09-05] MEDS: MORPHINE 2 MG/ML INJ. SYRINGE IVP PRN (10:30)
[2021-09-05] MEDS: PROCHLORPERAZINE EDISYLATE 10 MG/2 ML VIAL IVP PRN (11:06)
[2021-09-05 11:30] VITALS: BP_SYST 130
[2021-09-05] MEDS: amLODIPine BESYLATE 5 MG TABLET PO SCH (11:39)
[2021-09-05] MEDS: LOSARTAN POTASSIUM 50 MG TABLET (COZAAR) PO SCH (11:39)
[2021-09-05 15:21] VITALS: BP_SYST 104
--- NOTE | 2021-09-05 16:49 | NUR ---
Nutrition F/U RD reviewed pt's current EMR record including diet Hx, physician notes, nursing notes, pertinent labs/meds/procedures, care trends, and care activity. Admission Dx: DKA PMH: type DM and UTI per physician notes SARS-CoV-2 Ag (Rapid) Negative 08/27 Current Diet Order/Nutrition Support: Full Liquid x 0day Subjective Info: Per EMR review, Pt is feeling better w/ N/V but not consistent x 1 day. Abdomen ultrasound (09/04) findings consistent with cholelithiasis, echogenic density within the midportion of right kidney, associated with calculus. Joey skin risk of 22, skin intact. Bowel sound active. BG levels are improved per previous RD assess. Per nursing charting, pt attempted to eat w/ full liquid today with intake of 30-50% x 2 meals. Pt may benefit from Ensure Clear for better absorption and inadequate PO intake. Pertinent Medications:: KCl IV, D5%-1/2NS at 50 ml/hr (204 kcal/day), morphine, protonix IV, reglan, Zofran, SSI, carafate, glucose, Norvasc, zofran Pertinent Labs: (09/05) K: 2.7L, BUN: 4L, Cr: 0.51L, POC GLU: 108H, Ca: 8.1L. Height (Feet) 5 feet 3.00 inches Weight (Pounds) 154 pounds -- stable since 08/30 Weight (Calculated Kilograms) 69.040913 kilograms Patient Weight 69.853 kg Body Mass Index 27.28 kg/m2 %IBW 134 Morton/Adjusted Body Weight IBW: 115#/52 kg. Adj IBW (obesity): 125#/57 kg Recent Weight Change No Weight Status Overweight Estimated Energy Expenditure (kcals/day) 4161-7429 kcal/day (25-30 kcal/kg Adj IBW d/t obesity, maintenance) Estimated Protein Required (g/day) 46-57 gm/day (0.8-1 gm/kg Adj IBW d/t obesity, maintenance) Estimated Fluid Required (l/day) 2.1-2.5 L/day (30-35 ml/kg CBW d/t maintenance) Problem/Etiology/Signs/Symptoms Suboptimal nutritional intakes related to lack of appetite as evidenced by N/V and negligible PO intake records. *ongoing Altered nutrition-related labs related to endocrine dysfunction as evidenced by elevated BG and POC BG lab values. *improving Complicated GI function related to pathophysiological causes as evidenced by N/V and per Abdomen Ultrasound result, cholelithiasis, & echogenic density within the midportion of right kidney, associated with calculus. *on going Expected Outcomes/Goals - Monitor appetite and PO intakes w/ goal of pt meeting at least 75% of estimated nutritional needs, labs trending WNL, normal GI function, and skin integrity/wt maintenance Dietitian Recommendations * Continue full liquid diet w/ Ensure Clear TID (ONS provides 720 kcal/day, 24 gm protein/day) * Encourage increase PO intakes * Advance diet when medically appropriate. Follow Up High Risk: F/U in 2-3 days
--- NOTE | 2021-09-05 16:55 | NUR ---
Dietitian Recommendations * Continue full liquid diet w/ Ensure Clear TID (ONS provides 720 kcal/day, 24 gm protein/day) * Encourage increase PO intakes * Advance diet when medically appropriated Please refer to nutrition assessment for details.
[2021-09-05] MEDS: D5/0.45 NS 1,000 ML IV SCH (17:46)
[2021-09-05 19:00] VITALS: BP_SYST 106
--- NOTE | 2021-09-05 19:15 | NUR ---
change of shift.pt.presents quiescent affect;calm,resting.pt.presents picc line;location lt.bicept.intact.iv fluids infusing.pt.capable to reposition self/ambulate unassisted.general status stable.respiratory status stable;unlabored@room air.call [facility]/telephone w/in access of the pt.
[2021-09-05 20:00] VITALS: BP_SYST 106
--- NOTE | 2021-09-05 20:00 | NUR ---
pt.assessed.v/s assessed values wnl.no c/o pain,nausea.picc line intact iv fluids infusing.pt/mother apprised me that the pt. is to submit to surgery:09/06/21.per .to f/u w .i have apprised the pt.that snacks/beverages are available.no requests posited@this hour.pt.capable to reposition self.call light/telephone w/in access of the pt.
--- NOTE | 2021-09-05 20:30 | NUR ---
blood glucose assessed value;153mg/dl.
--- NOTE | 2021-09-05 21:00 | NUR ---
2100pmedications administered.protonix ivp,insulins;nph:20-u/humalo-u per sliding scale.i have clarified w /jose [facility] worker.pt.to submit to surgery;09/06/21@1400p.diet status to convert to npo@midnight.surgery paperwork to be f/u and surgery consent:leeanna potts v.joe potts.call light/telephone w/in access of the pt.
[2021-09-05] MEDS: INSULIN LISPRO SLIDING SCALE 100 UNITS/ML VIAL (humaLOG) SUBCUT PRN (21:34)
--- NOTE | 2021-09-05 22:00 | NUR ---
pt.assesses.no c/o pain,nausea.f/u w surgery prep;ua.pt.provided w specimen cup,lab work ordered.confirmed npo diet status@midnight.picc line intact intact iv fluids infusing.no c/o pain,nausea.pt.capable to reposition self.call light/telephone placed w/in access of the pt.
--- NOTE | 2021-09-05 22:30 | NUR ---
i have witnessed the pt.sign the surgery consent.
--- NOTE | 2021-09-06 | NUR ---
pt.assessed.v/s assessed values wnl.no c/o pain,nausea.picc line intact iv fludis infusing.diet status converted to npo;re-iterated to pt.red cone placed upon bed side table.pt.capable to reposition self.call light/telephone placed w/in access of the pt.
[2021-09-06 00:27] VITALS: BP_SYST 103
--- NOTE | 2021-09-06 02:00 | NUR ---
pt.assessed.pt.presents quiescent affect;calm,somnolent.per flacc pain mgx pt.absent facial grimaces/body posturing. picc linen intact iv fluids infusing.pt.capable to reposition self.call light/telephone w/in access of the pt.
--- NOTE | 2021-09-06 04:00 | NUR ---
pt.assessed.pt.requested the blood glucose be assessed.i acquiest to the pt's request blood glucose assessed value 77mg/dl. iv fluids infusing:d5/45. no c/o pain,nausea.pt.had provided the urine sample sent to lab.pt.capable to reposition self.call light/telephone w/in access of the pt.
[2021-09-06 04:19] LABS: BILIRUBIN,URINE NEGATIVE (NEGATIVE); CLARITY/URINE CLEAR (CLEAR); COLOR,URINE YELLOW (YELLOW); GLUCOSE,URINE NEGATIVE (NEGATIVE); KETONES,URINE NEGATIVE (NEGATIVE); LEUKOCYTE ESTERASE ,URINE 1+ (NEGATIVE); NITRITE, URINE NEGATIVE (NEGATIVE); PH,URINE 6.5 (5.0-8.0); PROTEIN URINE NEGATIVE (NEGATIVE); UROBILINOGEN,URINE 0.2 (0.2-1.0)
[2021-09-06 04:28] LABS: BLOOD, URINE TRACE (NEGATIVE)
[2021-09-06 04:32] LABS: BARBITURATE, URINE NEGATIVE (NEG <=200); BENZODIAZEPINE, URINE POSITIVE (NEG <=150); CANNABINOID, URINE NEGATIVE (NEG <=50); COCAINE, URINE NEGATIVE (NEG <=150); METHAMPHETAMINES SCREEN,URINE NEGATIVE (NEG <=500); OPIATE, URINE POSITIVE (NEG <=100); PHENCYCLIDINE SCREEN,URINE NEGATIVE (NEG <=25); UR TRICYCLIC ANTIDEPRESSANTS NEGATIVE (NEG <=300); URINE AMPHETAMINE NEGATIVE (NEG <=500); URINE METHADONE NEGATIVE (NEG <=200); URINE OXYCODONE SCREEN NEGATIVE (NEG <=100); URINE PROPOXYPHENE SCREEN NEGATIVE (NEG <=300)
[2021-09-06 05:10] LABS: BACTERIA,URINE FEW /HPF (None Seen)
[2021-09-06] MEDS: METOCLOPRAMIDE HCL 10 MG/2 ML VIAL IVP SCH ×4 (05:49→23:42)
[2021-09-06] MEDS: D5/0.45 NS 1,000 ML IV SCH (05:49)
[2021-09-06] MEDS: SUCRALFATE 1 GM TABLET PO SCH ×2 (05:54→17:11)
--- NOTE | 2021-09-06 06:33 | NUR ---
pt.assessed.blood glucose assessed value:88mg/dl.no c/o pain,nausea.pt.capable to reposition self.iv fluids infusing. call light/telephone w/in access of the pt.
[2021-09-06 08:21] VITALS: BP_SYST 102
[2021-09-06] MEDS: PANTOPRAZOLE SODIUM 40 MG/VIAL (PROTONIX) IVP SCH ×2 (08:43→21:23)
[2021-09-06] MEDS: LOSARTAN POTASSIUM 50 MG TABLET (COZAAR) PO SCH (08:52)
[2021-09-06] MEDS: INSULIN NPH 100 UNITS/ML 10 ML VIAL SUBCUT SCH (08:55)
--- NOTE | 2021-09-06 08:57 | NUR ---
PATIENT STATES SHE IS ALLERGIC TO COZAAR MEDICATION. WILL INFORM
[2021-09-06 08:59] LABS: BASOPHILS % (AUTO) 0.3 % (0.0-2.0); EOSINOPHILS # (AUTO) 0.3 K/uL (0.0-0.4); EOSINOPHILS % (AUTO) 3.2 % (0.0-4.0); HEMATOCRIT 37.3 % (36-48); HEMOGLOBIN 12.2 g/dL (12.0-16.0); LYMPHOCYTES # (AUTO) 4.3 K/uL (1.0-5.5); LYMPHOCYTES % (AUTO) 46.1 % (20.5-51.5); MEAN CORPUSCULAR HEMOGLOBIN 27 pg (27-31); MEAN CORPUSCULAR HGB CONC 33 % (32-36); MEAN CORPUSCULAR VOLUME 81 fL (79.0-98.0); MONOCYTES # (AUTO) 0.8 K/uL (0.0-1.0); MONOCYTES % (AUTO) 8.8 % (1.7-9.3); NEUTROPHILS # (AUTO) 3.8 K/uL (1.8-7.7); NEUTROPHILS % (AUTO) 41.6 % (40.0-70.0); PLATELET COUNT (AUTO) 356 K/uL (130-430); RED BLOOD CELL COUNT(AUTO) 4.58 MIL/uL (4.2-6.2); RED CELL DISTRIBUTION WIDTH 13.6 % (9.0-15.0); WHITE BLOOD COUNT (AUTO) 9.3 K/uL (4.8-10.8)
[2021-09-06 09:24] LABS: CALCIUM 8.4 mg/dL (8.4-11.0); CREATININE 0.6 mg/dL (0.55-1.30); POTASSIUM 3.9 mmol/L (3.5-5.1)
[2021-09-06 09:33] LABS: INR 0.9 (0.8-1.2); PROTHROMBIN TIME 9.9 SECS (9.5-12.5)
[2021-09-06 11:28] VITALS: BP_SYST 103
--- NOTE | 2021-09-06 11:50 | NUR ---
PATINT TAKEN TO OR BY OR NURSES
[2021-09-06] MEDS ORDERED: PROPOFOL 200MG/ 20ML VIAL (DIPRIVAN) IV ONE (12:46)
[2021-09-06] MEDS ORDERED: ROCURONIUM BROMIDE 10 MG/ML (ZEMURON) IV ONE (12:46)
[2021-09-06] MEDS ORDERED: D5/0.45 NS 1,000 ML IV.SOLN IV ONE (12:46)
[2021-09-06] MEDS ORDERED: CEFAZOLIN 2 GM IVPB PREMIX 50 ML IV ONE (12:46)
[2021-09-06] MEDS ORDERED: ONDANSETRON HCL 4 MG/2 ML VIAL IVP ONE (12:46)
[2021-09-06] MEDS ORDERED: SEVOFLURANE 15 MIN GAS INH ONE (12:46)
[2021-09-06] MEDS ORDERED: PHENYLEPHRINE HCL 10 MG/ML VIAL (NEOSYNEPHRINE) IV ONE (12:46)
[2021-09-06] MEDS ORDERED: METOCLOPRAMIDE HCL 10 MG/2 ML VIAL IVP ONE (12:46)
[2021-09-06] MEDS ORDERED: GLYCOPYRROLATE 0.2 MG/ML VIAL IJ ONE (12:46)
[2021-09-06] MEDS ORDERED: NS 1000 ML IV.SOLN IV ONE (12:46)
[2021-09-06] MEDS ORDERED: BUPIVACAINE /EPINEPHRINE/PF 0.25% 30 ML VIAL INJ ONE (12:46)
[2021-09-06] MEDS ORDERED: fentaNYL CITRATE/PF 100 MCG/2 ML AMP IVP ONE (12:46)
[2021-09-06] MEDS ORDERED: MIDAZOLAM HCL 5 MG/5 ML VIAL IVP ONE (12:46)
[2021-09-06] MEDS ORDERED: HYDROmorphone 1 MG/ML INJ. CARTRIDGE IVP PRN ×2 (13:30)
[2021-09-06] MEDS ORDERED: LR 1,000 ML IV SCH (13:30)
[2021-09-06] MEDS ORDERED: ONDANSETRON HCL 4 MG/2 ML VIAL IVP PRN (13:30)
[2021-09-06] MEDS ORDERED: HYDROmorphone 2 MG/ML VIAL IVP PRN (13:30)
[2021-09-06] MEDS ORDERED: KETOROLAC TROMETHAMINE 30 MG VIAL IVP PRN (13:30)
[2021-09-06] MEDS ORDERED: NACL 0.9% 1,000 ML IV SCH (14:45)
[2021-09-06] MEDS ORDERED: HYDROmorphone 1 MG/ML INJ. CARTRIDGE ONE (14:45)
[2021-09-06] MEDS ORDERED: INSULIN REGULAR, HUMAN 100 UNITS/ML, 10 ML VIAL (humuLIN R) ONE (14:45)
[2021-09-06 15:30] VITALS: BP_SYST 104
[2021-09-06] MEDS ORDERED: INSULIN REGULAR, HUMAN 100 UNITS/ML, 10 ML VIAL SUBCUT ONE (15:30)
--- NOTE | 2021-09-06 15:30 | NUR ---
PATIENT CAME BACK FROM PACU RECOVERY. PATIENT IS ALERT ORIENTED DROWSY, VITALS WITHIN NORMAL LIMIT, WILL CONTINUE TO MONITOR
--- NOTE | 2021-09-06 18:30 | NUR ---
PATIENT IS COMPLAINS OF PAIN 10/10, MORPHINE 2MG GIVEN. WILL CONTINUE TO MONITOR
[2021-09-06 18:43] VITALS: BP_SYST 108
[2021-09-06] MEDS: MORPHINE 2 MG/ML INJ. SYRINGE IVP PRN (19:07)
--- NOTE | 2021-09-06 19:30 | NUR ---
OPENING NOTE RECEIVED REPORT FROM DAY RN. PATIENT SITTING IN BED WITH RESPIRATIONS EVEN AND UNLABORED ON RA. NO SIGNS OF DISTRESS NOTED. PT MOTHER AT BEDSIDE.LEFT UPPER ARM PICC INTACT. PT DENIES N/V, AND SOB AT THIS TIME. BED IN LOWEST AND LOCKED POSITION. CALL LIGHT WITHIN REACH. WILL CONTINUE TO MONITOR.
[2021-09-06 20:00] VITALS: BP_SYST 116
[2021-09-06] MEDS ORDERED: INSULIN GLARGINE 100 UNITS/ML 10 ML VIAL SUBCUT SCH (21:00)
[2021-09-06] MEDS: HYDROcodone/ACETAMIN 5-325 MG TAB (NORCO/ VICODIN) PO PRN (21:22)
[2021-09-07] VITALS: BP_SYST 128
--- NOTE | 2021-09-07 00:12 | NUR ---
ROUNDS PATIENT LAYING IN BED WITH RESPIRATIONS EVEN AND UNLABORED ON RA. NO SIGNS OF DISTRESS NOTED. SAFETY PRECAUTIONS IN PLACE. WILL CONTINUE TO MONITOR.
[2021-09-07] MEDS: METOCLOPRAMIDE HCL 10 MG/2 ML VIAL IVP SCH ×2 (06:06→12:06)
[2021-09-07] MEDS: SUCRALFATE 1 GM TABLET PO SCH (06:06)
--- NOTE | 2021-09-07 06:35 | NUR ---
CLOSING NOTE PATIENT IN BED AWAKE WITH RESPIRATIONS EVEN AND UNLABORED ON RA. NO SIGNS OF DISTRESS NOTED. LEFT UPPER ARM PICC INTACT. FLUSHES WELL. MOTHER AT BEDSIDE. MORNING BS WNL. BED IN LOWEST AND LOCKED POSITION. CALL LIGHT WITHIN REACH. SAFETY PRECAUTIONS IN PLACE. ALL NEEDS MET THROUGHOUT THE NIGHT. WILL ENDORSE TO DAY RN.
[2021-09-07 07:33] LABS: BASOPHILS % (AUTO) 0.3 % (0.0-2.0); EOSINOPHILS # (AUTO) 0.3 K/uL (0.0-0.4); EOSINOPHILS % (AUTO) 2.8 % (0.0-4.0); HEMATOCRIT 34.2 % (36-48); HEMOGLOBIN 11.1 g/dL (12.0-16.0); LYMPHOCYTES # (AUTO) 3.9 K/uL (1.0-5.5); LYMPHOCYTES % (AUTO) 35.5 % (20.5-51.5); MEAN CORPUSCULAR HEMOGLOBIN 27 pg (27-31); MEAN CORPUSCULAR HGB CONC 32 % (32-36); MEAN CORPUSCULAR VOLUME 82 fL (79.0-98.0); MONOCYTES # (AUTO) 1.3 K/uL (0.0-1.0); MONOCYTES % (AUTO) 11.4 % (1.7-9.3); NEUTROPHILS # (AUTO) 5.5 K/uL (1.8-7.7); PLATELET COUNT (AUTO) 321 K/uL (130-430); RED BLOOD CELL COUNT(AUTO) 4.16 MIL/uL (4.2-6.2); RED CELL DISTRIBUTION WIDTH 13.8 % (9.0-15.0); WHITE BLOOD COUNT (AUTO) 11.1 K/uL (4.8-10.8)
[2021-09-07 07:45] VITALS: BP_SYST 124
[2021-09-07 08:35] LABS: ALBUMIN 2.4 g/dL (3.4-4.8); CALCIUM 8.3 mg/dL (8.4-11.0); CREATININE 0.67 mg/dL (0.55-1.30); PHOSPHORUS 4.1 mg/dL (2.7-4.5); POTASSIUM 3.7 mmol/L (3.5-5.1); TOTAL BILIRUBIN 0.3 mg/dL (0.0-1.0)
[2021-09-07] MEDS: PANTOPRAZOLE SODIUM 40 MG/VIAL (PROTONIX) IVP SCH (08:38)
[2021-09-07] MEDS: MORPHINE 2 MG/ML INJ. SYRINGE IVP PRN (08:40)
--- NOTE | 2021-09-07 08:49 | NUR ---
DR OROURKE WAS HERE AND SEEN PATIENT
[2021-09-07] MEDS: INSULIN LISPRO SLIDING SCALE 100 UNITS/ML VIAL (humaLOG) SUBCUT PRN (12:07)
[2021-09-07] MEDS ORDERED: ONDA4TAB5 PO (13:03)
[2021-09-07] MEDS ORDERED: HYDR-3917 PO (13:03)
[2021-09-07] MEDS ORDERED: SUCR1TAB78 PO (13:03)
[2021-09-07] MEDS ORDERED: METO-290 PO (13:03)
[2021-09-07] MEDS ORDERED: PRO40 PO (13:03)
--- NOTE | 2021-09-07 13:23 | NUR ---
GEN SURGEON, DR Toño MILLER WAS PAGED, RE: CLEARANCE TO GO HOME. SPOKE TO JOHN.
[2021-09-07 13:47] VITALS: BP_SYST 126
[2021-09-07 13:49] VITALS: BP_SYST 126
--- NOTE | 2021-09-07 14:16 | NUR ---
MADE ANOTHER CALL TO GEN SURGEON DR MILLER ON HIS CELL, RE: DC HOME IF CLEARED BY DR MILLER. LEFT HIM A VM.
--- NOTE | 2021-09-07 14:59 | NUR ---
disposition 01
--- NOTE | 2021-09-07 15:05 | NUR ---
PUT ANOTHER CALL TO DR MILLER, AGAIN FOR CLEARANCE TO DC PT TO HOME. SPOKE TO MALAIKA.
--- NOTE | 2021-09-07 16:30 | NUR ---
INCISION DRESSING CHANGE. WOUND IS INTACT, NO DRAINAGE AND BLEEDING, NO SIGNS AND SYMPTOMS OF INFECTION. PICC LINE REMOVED ASEPTICALLY. PATIENT TOLERATED WELL ON BOTH PROCEDURES.
--- NOTE | 2021-09-07 17:30 | NUR ---
D/C Patient Patient given medication reconciliation form and D/C instructions. Exit Care provided. Patient verbalized understanding. MD discussed with patient the results and treatment provided. Ambulatory with steady gait for discharge to home. Patient in stable condition, ID band removed. PICC line removed, intact and dressing applied, no active bleeding. Rx of reglan, zofran, norco, sucralfate, pantoprazol given. Patient educated on pain management, dressing change, wound care, medication education. Instruct client to follow up with Primary care doctor and surgeon. Telephone number given. All belongings sent with patient.
== END 2021-09-07 17:30 | disposition home or self-care (01) | DRG 417 ==
LOC: SED 20:37 → SIC 08-28 02:15 → STU 09-03 19:05 → SMU 09-03 19:07
PROVIDERS: ADMIT Preventive Medicine Preventive Medicine/Occupational Environmental Medicine; ATTEND Preventive Medicine Preventive Medicine/Occupational Environmental Medicine
PROC: 0FN44ZZ Release Gallbladder, Percutaneous Endoscopic Approach (ICD-10-PCS; 2021-09-06)
PROC: BF131ZZ Fluoroscopy of Gallbladder and Bile Ducts using Low Osmolar Contrast (ICD-10-PCS; 2021-09-06)
PROC: 0FT44ZZ Resection of Gallbladder, Percutaneous Endoscopic Approach (ICD-10-PCS; principal; 2021-09-06 12:46)
DX: K80.10 Calculus of gallbladder with chronic cholecystitis without obstruction (principal); E10.10 Type 1 diabetes mellitus with ketoacidosis without coma; A41.9 Sepsis, unspecified organism; E43 Unspecified severe protein-calorie malnutrition; J96.01 Acute respiratory failure with hypoxia; B37.49 Other urogenital candidiasis; N17.9 Acute kidney failure, unspecified; E87.0 Hyperosmolality and hypernatremia; K92.2 Gastrointestinal hemorrhage, unspecified; D64.9 Anemia, unspecified; D75.839 Thrombocytosis, unspecified; E10.22 Type 1 diabetes mellitus with diabetic chronic kidney disease; E78.00 Pure hypercholesterolemia, unspecified; E78.5 Hyperlipidemia, unspecified; E83.39 Other disorders of phosphorus metabolism; N18.9 Chronic kidney disease, unspecified; I12.9 Hypertensive chronic kidney disease with stage 1 through stage 4 chronic kidney disease, or unspecified chronic kidney disease; E83.51 Hypocalcemia; E86.0 Dehydration; K82.8 Other specified diseases of gallbladder; Z20.822 Contact with and (suspected) exposure to COVID-19; K31.84 Gastroparesis; E10.43 Type 1 diabetes mellitus with diabetic autonomic (poly)neuropathy; E87.6 Hypokalemia; Z88.8 Allergy status to other drugs, medicaments and biological substances; Z83.3 Family history of diabetes mellitus; Z79.899 Other long term (current) drug therapy; Z68.27 Body mass index [BMI] 27.0-27.9, adult; Z87.440 Personal history of urinary (tract) infections
CPT/HCPCS: 36415; 36600; 71045; 74300; 76376; 76700-TC; 78264-TC; 80048; 80053; 80076; 80307; 81000; 82009; 82150; 82306; 82803-TC; 82948; 82962; 83690; 83735; 83930; 84100; 84311; 84484; 84702; 85025; 85610-TC; 85651-TC; 85730-TC; 86140; 86886; 86900; 86901; 87040-TC; 87081; 87086; 87186-TC; 88304; 93005; 96361; 96365; 99285; A9541; C1727; C9113; J0690; J0696; J0780; J1170; J1630; J1815; J2060; J2250; J2270; J2370; J2405; J2704; J2765; J3010; J3480; J3490; J7030; J7050; Q9967

== ENCOUNTER 2022-01-15 16:06 | Emergency (ER) | payer MEDICAID ==
[~2022-01-15] VITALS: Ht 160 cm; Wt 61.2 kg
[~2022-01-15 16:06] MED LIST: HYDR-3917 PO; METO-290 PO; ONDA4TAB5 PO; PRO40 PO; SUCR1TAB78 PO
[2022-01-15 16:15] VITALS: BP_SYST 146
--- NOTE | 2022-01-15 16:37 | NUR ---
Patient to ER bed 07 to gown for evaluation. Side rails up.
--- NOTE | 2022-01-15 16:45 | NUR ---
Pt. bib S.O. with c/o N/V since 0600 yesterday, emesis is dark coffee ground in color and pt. now has abd. and chestwall pain from vomitting she thinks
--- NOTE | 2022-01-15 16:56 | NUR ---
Dark Murphys, slightly sedentary, w. strong-faul smell. Sent urine to the lab.
--- NOTE | 2022-01-15 17:18 | NUR ---
pt. cont. vomit, notified Dr. Saeed, orders placed
--- NOTE | 2022-01-15 17:18 | NUR ---
ER at bedside examining patient.
[2022-01-15] MEDS ORDERED: NACL 0.9% 1,000 ML IV ONE ×2 (17:30→20:45)
[2022-01-15] MEDS ORDERED: ONDANSETRON HCL 4 MG/2 ML VIAL IVP ONE ×2 (17:30→23:45)
[2022-01-15 17:57] LABS: BASOPHILS % (AUTO) 0.4 % (0.0-2.0); EOSINOPHILS % (AUTO) 0.3 % (0.0-4.0); HEMATOCRIT 40.6 % (36-48); HEMOGLOBIN 13.5 g/dL (12.0-16.0); LYMPHOCYTES # (AUTO) 2.7 K/uL (1.0-5.5); MEAN CORPUSCULAR HEMOGLOBIN 26 pg (27-31); MEAN CORPUSCULAR HGB CONC 33 % (32-36); MEAN CORPUSCULAR VOLUME 77 fL (79.0-98.0); MONOCYTES # (AUTO) 0.5 K/uL (0.0-1.0); NEUTROPHILS % (AUTO) 65.3 % (40.0-70.0); PLATELET COUNT (AUTO) 470 K/uL (130-430); RED BLOOD CELL COUNT(AUTO) 5.29 MIL/uL (4.2-6.2); RED CELL DISTRIBUTION WIDTH 13.6 % (9.0-15.0); WHITE BLOOD COUNT (AUTO) 9.2 K/uL (4.8-10.8)
[2022-01-15 18:23] LABS: ANION GAP 8 (5-15); CALCIUM 10.6 mg/dL (8.4-11.0); CHLORIDE 100 mmol/L (98-107); CREATININE 0.86 mg/dL (0.55-1.30); GLUCOSE 184 mg/dL (70-99); POTASSIUM 3.8 mmol/L (3.5-5.1); SODIUM SERUM 140 mmol/L (136-145); UREA NITROGEN, BLOOD 31 mg/dL (8-21)
[2022-01-15 18:24] LABS: GFR AFRICAN AMERICAN 102 mL/min (>90)
[2022-01-15 18:28] LABS: ALANINE AMINOTRANSFERASE 19 U/L (12-78); ALBUMIN 3.5 g/dL (3.4-4.8); ASPARTATE AMINOTRANSFERASE 18 U/L (10-37); HCG,QUANTITATIVE 0 mIU/ML (0-6); TOTAL BILIRUBIN 0.3 mg/dL (0.0-1.0)
[2022-01-15 18:28] LABS: BILIRUBIN,URINE NEGATIVE (NEGATIVE); CLARITY/URINE CLOUDY (CLEAR); COLOR,URINE YELLOW (YELLOW); GLUCOSE,URINE NEGATIVE (NEGATIVE); KETONES,URINE TRACE (NEGATIVE); LEUKOCYTE ESTERASE ,URINE TRACE (NEGATIVE); NITRITE, URINE NEGATIVE (NEGATIVE); PROTEIN URINE 2+ (NEGATIVE); UROBILINOGEN,URINE 0.2 (0.2-1.0)
[2022-01-15 18:29] LABS: ALCOHOL, BLOOD < 3 mg/dL (<10)
[2022-01-15 19:12] LABS: BLOOD, URINE TRACE (NEGATIVE)
[2022-01-15 19:18] LABS: BACTERIA,URINE MANY /HPF (None Seen); MUCUS,URINE None Seen /LPF (None Seen); WBC,URINE 20-50 /HPF (0-3)
--- NOTE | 2022-01-15 19:45 | NUR ---
Pt resting in bed, no apparent signs of acute distress. VSS at this time.
[2022-01-15] MEDS ORDERED: DIPHENHYDRAMINE INJ 50 MG/ML VIAL IVP ONE (20:45)
[2022-01-15] MEDS ORDERED: PANTOPRAZOLE SODIUM 40 MG/VIAL (PROTONIX) IVP ONE (20:45)
[2022-01-15] MEDS ORDERED: METOCLOPRAMIDE HCL 10 MG/2 ML VIAL IVP ONE (20:45)
[2022-01-15] MEDS ORDERED: DIPHENHYDRAMINE INJ 50 MG/ML VIAL ONE (20:52)
[2022-01-15] MEDS ORDERED: MAG HYDROX/AL HYDROX/SIMETH 30 ML, LIDOCAINE VISCOUS 2% 15ML (PO) 15 ML, DICYCLOMINE HC... PO ONE ×3 (23:45)
[2022-01-15] MEDS ORDERED: FAMOTIDINE PF 20 MG/2 ML VIAL IVP ONE (23:45)
[2022-01-15] MEDS ORDERED: KETOROLAC TROMETHAMINE 30 MG VIAL IVP ONE (23:45)
--- NOTE | 2022-01-16 01:10 | NUR ---
Pt given PO fluids to assess if she is able to tolerate fluids without experiencing any N&V. Pt states she feels well, denies any N&V after po fluids. Resting comfortably in bed.
[2022-01-16] MEDS ORDERED: METO-290 PO (02:03)
[2022-01-16] MEDS ORDERED: FAMO-132 PO (02:03)
[2022-01-16] MEDS ORDERED: PRO40 PO (02:03)
[2022-01-16] MEDS ORDERED: ONDA-8 TL (02:03)
[2022-01-16] MEDS ORDERED: CEFU250T85 PO (02:06)
[2022-01-16] MEDS ORDERED: cefTRIAXone 1 GM VIAL ONE (02:08)
[2022-01-16] MEDS ORDERED: cefTRIAXone 1 GM in D5W 50 ML IV ONE (02:15)
--- NOTE | 2022-01-16 03:10 | NUR ---
Patient given written and verbal discharge instructions and verbalizes understanding. ER MD Rivas discussed with patient the results and treatment provided. Patient in stable condition. ID arm band removed. IV catheter removed intact and dressing applied, no active bleeding. Rx of discharge medications sent to pharmacy of choice. Patient educated on pain management and to follow up with PMD. Opportunity for questions provided and answered. Medication side effect fact sheet provided. Sig. [facility].
[2022-01-16 03:13] VITALS: BP_SYST 117
== END 2022-01-16 03:11 | disposition home or self-care (01) ==
LOC: SED 16:06
DX: K92.0 Hematemesis (principal); R10.13 Epigastric pain; E11.9 Type 2 diabetes mellitus without complications; Z88.8 Allergy status to other drugs, medicaments and biological substances; Z79.899 Other long term (current) drug therapy
CPT/HCPCS: 36415; 80053; 81000; 81025; 82009; 82803; 84484; 84702; 85025; 87086; 96361; 96365; 96375; 96376; 99285; C9113; G0482; J0696; J1200; J2001; J2405; J2765; J3490; J7030

== ENCOUNTER 2022-01-18 11:36 | Emergency (ER) | payer MEDICAID ==
[~2022-01-18] VITALS: Ht 160 cm; Wt 73.9 kg
[~2022-01-18 11:36] MED LIST changes: +CEFU250T85 PO; +FAMO-132 PO; +ONDA-8 TL
[2022-01-18 11:40] VITALS: BP_SYST 136
--- NOTE | 2022-01-18 11:59 | NUR ---
Pt to bed #8 coming from home ambulatory with steady gait. Pt c/o n/v and lower abdominal pain that started last night at 10:30pm. Rates abdominal pain 5/10 non-radiating. Pt was diagnosed with a UTI on Friday and is currently taking antibiotics and nausea medication. Pt allergic to penicillin, losartan, and tomás inhibitors. Pt has hx of gastritis, hyperlipidemia, gastroperesis, and Type 1 DM. Pt had gallbladder removed. Pt is A&Ox4. VSS. Connected pt to monitor technician. No chest pain and no sob. Bed in lowest position.
--- NOTE | 2022-01-18 12:10 | NUR ---
Dr. Harden at bedside examining pt.
[2022-01-18 12:23] VITALS: BP_SYST 136
[2022-01-18] MEDS ORDERED: METOCLOPRAMIDE HCL 10 MG/2 ML VIAL IVP ONE (12:30)
[2022-01-18] MEDS ORDERED: NACL 0.9% 1,000 ML IV ONE ×2 (12:30→13:45)
[2022-01-18] MEDS ORDERED: PANTOPRAZOLE SODIUM 40 MG/VIAL (PROTONIX) IVP ONE (12:30)
[2022-01-18] MEDS ORDERED: DIPHENHYDRAMINE INJ 50 MG/ML VIAL IVP ONE ×2 (12:30→15:15)
[2022-01-18 12:44] LABS: BASOPHILS % (AUTO) 0.4 % (0.0-2.0); EOSINOPHILS % (AUTO) 0.4 % (0.0-4.0); HEMATOCRIT 39.3 % (36-48); HEMOGLOBIN 12.7 g/dL (12.0-16.0); LYMPHOCYTES # (AUTO) 2.1 K/uL (1.0-5.5); LYMPHOCYTES % (AUTO) 22.6 % (20.5-51.5); MEAN CORPUSCULAR HEMOGLOBIN 25 pg (27-31); MEAN CORPUSCULAR HGB CONC 32 % (32-36); MEAN CORPUSCULAR VOLUME 78 fL (79.0-98.0); MONOCYTES # (AUTO) 0.4 K/uL (0.0-1.0); NEUTROPHILS # (AUTO) 6.6 K/uL (1.8-7.7); NEUTROPHILS % (AUTO) 72.6 % (40.0-70.0); PLATELET COUNT (AUTO) 444 K/uL (130-430); RED BLOOD CELL COUNT(AUTO) 5.03 MIL/uL (4.2-6.2); RED CELL DISTRIBUTION WIDTH 13.4 % (9.0-15.0); WHITE BLOOD COUNT (AUTO) 9.1 K/uL (4.8-10.8)
[2022-01-18 13:00] LABS: ACETONE, SERUM NEGATIVE (NEGATIVE)
[2022-01-18 13:04] LABS: ANION GAP 10 (5-15); CALCIUM 9.7 mg/dL (8.4-11.0); CHLORIDE 101 mmol/L (98-107); CREATININE 0.89 mg/dL (0.55-1.30); GLUCOSE 160 mg/dL (70-99); POTASSIUM 3.8 mmol/L (3.5-5.1); SODIUM SERUM 138 mmol/L (136-145); UREA NITROGEN, BLOOD 15 mg/dL (8-21)
[2022-01-18 13:10] LABS: ALANINE AMINOTRANSFERASE 22 U/L (12-78); ALBUMIN 3.5 g/dL (3.4-4.8); ASPARTATE AMINOTRANSFERASE 15 U/L (10-37); LIPASE 38 U/L (73-393); TOTAL BILIRUBIN 0.3 mg/dL (0.0-1.0)
--- NOTE | 2022-01-18 13:13 | NUR ---
EKG completed by Qovia. Results provided to Dr Harden
--- NOTE | 2022-01-18 14:14 | NUR ---
ASSESSED PT. Pt is resting comfortably with eyes closed. No acute changes. IV fluids infusing
[2022-01-18 14:15] LABS: BILIRUBIN,URINE NEGATIVE (NEGATIVE); BLOOD, URINE 2+ (NEGATIVE); CLARITY/URINE CLEAR (CLEAR); COLOR,URINE YELLOW (YELLOW); GLUCOSE,URINE 2+ (NEGATIVE); KETONES,URINE 1+ (NEGATIVE); LEUKOCYTE ESTERASE ,URINE NEGATIVE (NEGATIVE); NITRITE, URINE NEGATIVE (NEGATIVE); PROTEIN URINE 2+ (NEGATIVE); UROBILINOGEN,URINE 0.2 (0.2-1.0)
[2022-01-18] MEDS ORDERED: METO-290 PO (14:31)
[2022-01-18 14:47] LABS: BACTERIA,URINE FEW /HPF (None Seen); MUCUS,URINE 1+ /LPF (None Seen); WBC,URINE 0-3 /HPF (0-3)
--- NOTE | 2022-01-18 15:04 | NUR ---
Pt c/o still having nausea and pt is episodes of vomiting. Pt placed in high fowlers position. Dr. Zepeda notified.
[2022-01-18] MEDS ORDERED: PROCHLORPERAZINE EDISYLATE 10 MG/2 ML VIAL IVP ONE (15:15)
[2022-01-18 17:44] VITALS: BP_SYST 142
--- NOTE | 2022-01-18 17:45 | NUR ---
Patient given written and verbal discharge instructions and verbalizes understanding. ER MD discussed with patient the results and treatment provided. Patient in stable condition. ID arm band removed. IV catheter removed intact and dressing applied, no active bleeding. Rx of Reglan 10mg tab given. Patient educated on pain management and to follow up with PMD. Pain Scale . Opportunity for questions provided and answered. Medication side effect fact sheet provided.
== END 2022-01-18 17:45 | disposition home or self-care (01) ==
LOC: SED 11:36
DX: R11.2 Nausea with vomiting, unspecified (principal); Z88.8 Allergy status to other drugs, medicaments and biological substances; E11.9 Type 2 diabetes mellitus without complications
CPT/HCPCS: 36415; 80053; 81000; 81025; 82009; 83690; 85025; 93005; 96361; 96374; 96375; 96376; 99284; C9113; J0780; J1200; J2765; J7030

== ENCOUNTER 2022-05-05 22:50 | Emergency (ER) | payer MEDICAID ==
[~2022-05-05] VITALS: Ht 160 cm; Wt 74.8 kg
[2022-05-05 22:58] VITALS: BP_SYST 140
--- NOTE | 2022-05-05 23:03 | NUR ---
Patient states she has had difficulty swallowing her entire life and sees specialists for this but it has gotten increasingly worse today with chest pain and n/v. No swelling noted to face, throat. clear lungs bilaterally.
[2022-05-05] MEDS ORDERED: ASPIRIN 81 MG TAB.CHEW PO ONE (23:15)
[2022-05-06 00:14] LABS: ALANINE AMINOTRANSFERASE 14 U/L (12-78); ALBUMIN 3.4 g/dL (3.4-4.8); ANION GAP 7 (5-15); ASPARTATE AMINOTRANSFERASE 16 U/L (10-37); CALCIUM 9.1 mg/dL (8.4-11.0); CHLORIDE 101 mmol/L (98-107); CREATININE 0.91 mg/dL (0.55-1.30); GLUCOSE 150 mg/dL (70-99); SODIUM SERUM 138 mmol/L (136-145); TOTAL BILIRUBIN 0.5 mg/dL (0.0-1.0); UREA NITROGEN, BLOOD 31 mg/dL (8-21)
[2022-05-06 00:15] LABS: GFR AFRICAN AMERICAN 95 mL/min (>90)
[2022-05-06 00:17] LABS: BASOPHILS % (AUTO) 0.4 % (0.0-2.0); EOSINOPHILS # (AUTO) 0.2 K/uL (0.0-0.4); EOSINOPHILS % (AUTO) 1.5 % (0.0-4.0); HEMOGLOBIN 11.8 g/dL (12.0-16.0); LYMPHOCYTES # (AUTO) 4.9 K/uL (1.0-5.5); LYMPHOCYTES % (AUTO) 45.7 % (20.5-51.5); MEAN CORPUSCULAR HEMOGLOBIN 26 pg (27-31); MEAN CORPUSCULAR HGB CONC 33 % (32-36); MEAN CORPUSCULAR VOLUME 79 fL (79.0-98.0); MONOCYTES # (AUTO) 0.6 K/uL (0.0-1.0); MONOCYTES % (AUTO) 5.9 % (1.7-9.3); NEUTROPHILS % (AUTO) 46.5 % (40.0-70.0); PLATELET COUNT (AUTO) 361 K/uL (130-430); RED BLOOD CELL COUNT(AUTO) 4.54 MIL/uL (4.2-6.2); RED CELL DISTRIBUTION WIDTH 13.6 % (9.0-15.0); WHITE BLOOD COUNT (AUTO) 10.7 K/uL (4.8-10.8)
--- NOTE | 2022-05-06 04:45 | NUR ---
TOLD REGISTRATION THAT THEY HAVE BEEN WAITING TOO LONG AND LEFT WITHOUT BEING SEEN.
== END 2022-05-06 04:45 | disposition left against medical advice (07) ==
LOC: SED 22:50
DX: R06.02 Shortness of breath (principal); R13.10 Dysphagia, unspecified; Z53.21 Procedure and treatment not carried out due to patient leaving prior to being seen by health care provider
CPT/HCPCS: 36415; 71045; 80053; 83880; 84484; 85025